=== PATIENT | male | born 1995 | race Caucasian/White ===

== ENCOUNTER 2024-08-06 11:37 | Emergency (ER) | payer MEDICAID ==
[~2024-08-06] VITALS: Ht 182.9 cm; Wt 88.5 kg
[2024-08-06 11:37] VITALS: BP_SYST 120; PULSE 83; RESP 18; TEMP 97.6; O2SAT 100
[2024-08-06 15:40] VITALS: BP_SYST 118; PULSE 76; RESP 16; TEMP 97.6; O2SAT 100
== END 2024-08-06 15:40 | disposition home or self-care (01) ==
LOC: SED 11:37
DX: R51.9 Headache, unspecified (principal); H93.13 Tinnitus, bilateral; H53.8 Other visual disturbances; Z79.01 Long term (current) use of anticoagulants
CPT/HCPCS: 70450-TC; 99284